=== PATIENT | male | born 1950 | race Caucasian/White ===

== ENCOUNTER 2024-05-26 17:16 | Observation (INO) | payer MEDICARE ==
--- NOTE | 2024-05-26 17:23 | ED ---
General Adult HPI - General Stated complaint: chest pain Time Seen by Provider: 05/26/24 17:21 - History of Present Illness Initial comments: Dictation was produced using [employer] dictation software. please excuse any grammatical, word or spelling errors. Chief Complaint: 74-year-old male with multiple comorbidities presents to the ER for chest pain. History of Present Illness: Patient 74-year-old male he is from out of town. He currently resides in [place] however he drove here 2 weeks ago to visit family. Patient states that yesterday he began having some chest pain that radiate down his left upper extremity. Patient has history of ND and coronary artery disease. Patient denies any associated shortness of breath. EMS was called patient brought to the ER. Patient denies any symptoms at the bedside. EMS states that he had stable vitals and stable EKG en route to the ER. The ROS documented in this emergency department record has been reviewed and confirmed by me. Those systems with pertinent positive or negative responses have been documented in the HPI. All other systems are other negative and/or noncontributory. - Related Data Allergies Allergy/AdvReac Type Severity Reaction Status Date / Time No Known Allergies Allergy Verified 05/26/24 17:37 Review of Systems ROS Statement: Those systems with pertinent positive or pertinent negative responses have been documented in the HPI. ROS Other: All systems not noted in ROS Statement are negative. General Exam - General Exam Comments Initial Comments: PHYSICAL EXAM: General Impression: Alert and oriented x3, not in acute distress HEENT: Normocephalic atraumatic, extra-ocular movements intact, pupils equal and reactive to light bilaterally, mucous membranes moist. Cardiovascular: Heart regular rate and rhythm Chest: Able to complete full sentences, no retractions, no tachypnea Abdomen: abdomen soft, non-tender, non-distended, no organomegaly Musculoskeletal: Pulses present and equal in all extremities, no peripheral edema Motor: no focal deficits noted Neurological: CN II-XII grossly intact, no focal motor or sensory deficits noted Skin: Intact with no visualized rashes Psych: Normal affect and mood Course Vital Signs 05/26/24 17:19 Temperature 97.7 F Pulse Rate 62 Respiratory 22 Rate Blood Pressure 135/98 O2 Sat by Pulse 100 Oximetry EKG Findings - EKG Comments: EKG Findings:: My EKG interpretation: Ventricular rate 67, sinus rhythm,. 189, cures 144, QTc 424, right bundle branch block. No PA prolongation, no QTC pr olongation, no ST or T-wave changes noted. Overall, this EKG is unremarkable Medical Decision Making - Medical Decision Making Was pt. sent in by a medical professional or institution ([facility], [employer], urgent care, hospital, or detention...) When possible be specific @ -No Did you speak to anyone other than the patient for history (EMS, parent, family, police, friend...)? What history was obtained from this source @ -Some history discussed with EMS as described above Did you review nursing and triage notes (agree or disagree)? Why? @ -I reviewed and agree with nursing and triage notes Were old charts reviewed (outside hosp., previous admission, EMS record, old EKG, old radiological studies, urgent care reports/EKG's, detention records)? Report findings @ -No old charts were reviewed Differential Diagnosis (chest pain, altered mental status, abdominal pain women, abdominal pain men, vaginal bleeding, musculoskeletal, weakness, fever, dyspnea, syncope, headache, dizziness, GI bleed, back pain, seizure, CVA, palpatations, mental health)? @ -Differential Chest Pain: Stable Angina, Unstable Angina, STEMI, NSTEMI Aortic Dissection, Pneumothorax, Musculoskeletal, Esophageal Spasm GERD, Cholecystitis, Pancreatitis, Zoster, t his is not meant to be an all-inclusive list. EKG interpreted by me (3pts min.). @ -See above X-rays interpreted by me (1pt min.). @ -Chest x-ray shows no acute processes CT interpreted by me (1pt min.). @ -None done U/S interpreted by me (1pt. min.). @ -None done What testing was considered but not performed or refused? (CT, X-rays, U/S, labs)? Why? @ -None What meds were considered but not given or refused? Why? @ -None Was smoking cessation discussed for >3mins.? @ -No Were there social determinants of health that impacted care today? How? (Homelessness, low income, unemployed, alcoholism, drug addiction, transportation, low edu. Level, literacy, decrease access to med. care, senior care, rehab)? @ -No Was there de-escalation of care discussed even if they declined (Discuss DNR or withdrawal of care, Hospice)? DNR status @ -No What co-morbidities impacted this encounter? (DM, HTN, Smoking, COPD, CAD, Cancer, CVA, ARF, Chemo, Hep., AIDS, mental health diagnosis, sleep apnea, morb id obesity)? @ -ND, coronary artery disease, CABG Was patient admitted / discharged? Hospital course, mention meds given and route, prescriptions, significant lab abnormalities, going to OR and other pertinent info. @ -73-year-old male with multiple comorbidities presents to the emergency department with atypical chest pain typical features. Vital signs stable stable. EKG shows no signs of ischemia infarction. Patient's pain-free at the bedside. Patient has multiple risk factors. Laboratory evaluation obtained. Labs are within acceptable limits. Trope negative. Due to patient's high risk features he will be admitted observation consultation cardiology. Patient given aspirin. Will be admitted to Dr. Lazaro Did you discuss the management of the patient with other professionals (professionals i.e. , PA, [employer]ER, lab, RT, psych nurse, home health care social worker, industrial recruiter, teacher, disciplinary hearing officer, watch case polisher)? Give summary @ -Case discussed with hospitalist for admission Was critical care preformed (if so, how long)? @ -No Undiagnosed new problem with uncertain prognosis? @ -No Drug Therapy requiring intensive monitoring for toxicity (Heparin, Nitro, Insulin, Cardizem)? @ -No Were any procedures done? @ -No Diagnosis/symptom? Acute, or Chronic, or Acute on Chronic? Uncomplicated (without systemic symptoms) or Complicated (systemic symptoms)? @ -Chest pain Side effects of treatment? @ -No Exacerbation, Progression, or Severe Exacerbation? @ -No Poses a threat to life or bodily function? How? (Chest pain, USA, ND, pneumonia, PE, COPD, DKA, ARF, appy, cholecystitis, CVA, Diverticulitis, Homicidal, Suicidal, threat to staff... and all critical care pts) @ -yes - Lab Data Result diagrams: 05/26/24 17:39 05/26/24 17:39 Lab Results 05/26/24 05/26/24 05/26/24 Range/Units 17:39 17:39 17:39 WBC 5.3 (3.8-10.6) k/uL RBC 5.26 (4.30-5.90) m/uL Hgb 16.1 (13.0-17.5) gm/dL Hct 47.0 (39.0-53.0) % MCV 89.3 (80.0-100.0) fL MCH 30.5 (25.0-35.0) pg MCHC 34.2 (31.0-37.0) g/dL RDW 13.4 (11.5-15.5) % Plt Count 201 (150-450) k/uL MPV 7.1 Neutrophils % 57 % Lymphocytes % 28 % Monocytes % 6 % Eosinophils % 6 % Basophils % 2 % Neutrophils # 3.0 (1.3-7.7) k/uL Lymphocytes # 1.5 (1.0-4.8) k/uL Monocytes # 0.3 (0-1.0) k/uL Eosinophils # 0.3 (0-0.7) k/uL Basophils # 0.1 (0-0.2) k/uL PT 11.3 (10.0-12.5) sec INR 1.0 (<1.2) APTT 24.8 (22.0-30.0) sec Sodium 137 (137-145) mmol/L Potassium 4.2 (3.5-5.1) mmol/L Chloride 105 (98-107) mmol/L Carbon Dioxide 27 (22-30) mmol/L Anion Gap 5 mmol/L BUN 19 (9-20) mg/dL Creatinine 0.90 (0.66-1.25) mg/dL Est GFR (CKD-EPI)AfAm >90 (>60 ml/min/1.73 sqM) Est GFR (CKD-EPI)NonAf 85 (>60 ml/min/1.73 sqM) Glucose 105 H (74-99) mg/dL Calcium 8.8 (8.4-10.2) mg/dL Magnesium 2.0 (1.6-2.3) mg/dL Total Bilirubin 0.6 (0.2-1.3) mg/dL AST 25 (17-59) U/L ALT 19 (4-49) U/L Alkaline Phosphatase 103 (38-126) U/L Troponin I (0.000-0.034) ng/mL Total Protein 7.4 (6.3-8.2) g/dL Albumin 4.0 (3.5-5.0) g/dL 05/26/24 Range/Units 17:39 WBC (3.8-10.6) k/uL RBC (4.30-5.90) m/uL Hgb (13.0-17.5) gm/dL Hct (39.0-53.0) % MCV (80.0-100.0) fL MCH (25.0-35.0) pg MCHC (31.0-37.0) g/dL RDW (11.5-15.5) % Plt Count (150-450) k/uL MPV Neutrophils % % Lymphocytes % % Monocytes % % Eosinophils % % Basophils % % Neutrophils # (1.3-7.7) k/uL Lymphocytes # (1.0-4.8) k/uL Monocytes # (0-1.0) k/uL Eosinophils # (0-0.7) k/uL Basophils # (0-0.2) k/uL PT (10.0-12.5) sec INR (<1.2) APTT (22.0-30.0) sec Sodium (137-145) mmol/L Potassium (3.5-5.1) mmol/L Chloride (98-107) mmol/L Carbon Dioxide (22-30) mmol/L Anion Gap mmol/L BUN (9-20) mg/dL Creatinine (0.66-1.25) mg/dL Est GFR (CKD-EPI)AfAm (>60 ml/min/1.73 sqM) Est GFR (CKD-EPI)NonAf (>60 ml/min/1.73 sqM) Glucose (74-99) mg/dL Calcium (8.4-10.2) mg/dL Magnesium (1.6-2.3) mg/dL Total Bilirubin (0.2-1.3) mg/dL AST (17-59) U/L ALT (4-49) U/L Alkaline Phosphatase (38-126) U/L Troponin I <0.012 (0.000-0.034) ng/mL Total Protein (6.3-8.2) g/dL Albumin (3.5-5.0) g/dL Disposition Clinical Impression: Chest pain Disposition: ADMITTED IP TO THIS HOSP Condition: Fair Referrals: None,Stated [Primary Care Provider] - 1-2 days Decision Time: 18:41
[2024-05-26 17:49] LABS: Basophils # (A) 0.1 k/uL (0-0.2); Basophils % (A) 2 %; Eosinophils # (A) 0.3 k/uL (0-0.7); Eosinophils % (A) 6 %; HGB 16.1 gm/dL (13.0-17.5); Lymphocytes # (A) 1.5 k/uL (1.0-4.8); Lymphocytes % (A) 28 %; MCH 30.5 pg (25.0-35.0); MCHC 34.2 g/dL (31.0-37.0); MCV 89.3 fL (80.0-100.0); Mean Platelet Volume 7.1; Monocytes # (A) 0.3 k/uL (0-1.0); Monocytes % (A) 6 %; Neutrophils % (A) 57 %; Platelet Count 201 k/uL (150-450); RBC 5.26 m/uL (4.30-5.90); RDW 13.4 % (11.5-15.5); WBC 5.3 k/uL (3.8-10.6)
[2024-05-26 17:57] LABS: Partial Thromboplastin Time 24.8 sec (22.0-30.0); Prothrombin Time 11.3 sec (10.0-12.5)
[2024-05-26 17:59] LABS: ALT 19 U/L (4-49); AST 25 U/L (17-59); African American GFR (CKD) >90 (>60 ml/min/1.73 sqM); Alkaline Phosphatase 103 U/L (38-126); Anion Gap 5 mmol/L; Blood Urea Nitrogen 19 mg/dL (9-20); Calcium 8.8 mg/dL (8.4-10.2); Carbon Dioxide 27 mmol/L (22-30); Chloride 105 mmol/L (98-107); Glucose 105 mg/dL (74-99); Non-African American GFR(CKD) 85 (>60 ml/min/1.73 sqM); Potassium 4.2 mmol/L (3.5-5.1); Sodium 137 mmol/L (137-145); Total Bilirubin 0.6 mg/dL (0.2-1.3); Total Protein 7.4 g/dL (6.3-8.2)
--- NOTE | 2024-05-26 18:02 | XR ---
EXAMINATION TYPE: XR chest 2V DATE OF EXAM: 05/26/2024 COMPARISON: None INDICATION: Chest pain TECHNIQUE: Frontal and lateral views of the chest are obtained. FINDINGS: The heart size is normal. The pulmonary vasculature is normal. There is blunting of left costophrenic angle. Atelectasis and/or small effusion may be present.. IMPRESSION: 1. Left costophrenic angle blunting. Correlate for atelectasis or effusion.
[2024-05-26] MEDS ORDERED: NITROGLYCERIN SL TABS 0.4 MG TAB SUBLINGUAL PRN (18:37)
[2024-05-26] MEDS: ASPIRIN 81 MG PO STA (18:52)
[2024-05-26] MEDS ORDERED: ALBUTEROL HFA INHALER INHALATION PRN (20:11)
[2024-05-26] MEDS: FENOFIBRATE 160 MG TAB PO SCH (20:30)
[2024-05-26] MEDS: ATORVASTATIN 20 MG TAB PO SCH (20:30)
[2024-05-26] MEDS: carvediloL 12.5 MG TAB PO SCH (20:31)
[2024-05-26] MEDS: NICOTINE 21MG/24HR PATCH TRANSDERM SCH (20:31)
[2024-05-26] MEDS: PANTOPRAZOLE 40 MG/10 ML VIAL IVP SCH (20:32)
[2024-05-26 22:15] VITALS: RESP 16
--- NOTE | 2024-05-26 22:24 | CT ---
EXAMINATION TYPE: CT angio chest CT DLP: 553.8 mGycm, Automated exposure control for dose reduction was used. DATE OF EXAM: 05/26/2024 9:58 PM COMPARISON: None. CLINICAL INDICATION:Male, 73 years old with history of D-dimer; CHEST PAIN TECHNIQUE/CONTRAST: CTA scan of the thorax is performed with IV Contrast, patient injected with 100 mL of Isovue 370, MIP images are created and reviewed these are created on a separate workstation.. FINDINGS: Pulmonary Artery: There is no evidence for a filling defect within the pulmonary vasculature to sugge st acute pulmonary embolism. The pulmonary artery is of normal size. Lungs/Pleura: Bilateral centrilobular and scattered paraseptal emphysematous changes. Scattered areas of atelectasis/scarring the bilateral lower lobes. There is a subpleural solid right lower lobe 7 mm nodule. There a few scattered sub-5 mm nodules in the right lung. There is a 5 mm pulmonary nodule i n the left upper lobe. No focal consolidations, pleural effusion or pneumothorax. Airway: Large airways are patent. Heart: Heart is within normal limits for size. Coronary artery atherosclerosis. Vasculature: Ascending aortic ectasia measuring 4.7 cm dilatation. There are calcified and noncalcifi ed atherosclerotic changes of the descending aorta. Mediastinum: No gross evidence of adenopathy. Musculoskeletal: No acute osseous abnormalities. Degenerative changes of the visualized spine. Sterno theodora wires are present. Soft Tissues/lymph nodes: Unremarkable. Lower neck: No significant findings. Upper Abdomen: Cholecystectomy clips. IMPRESSION: 1. No evidence of pulmonary embolism or acute intrathoracic process. 2. Emphysema. 3. Ascending aortic ectasia measuring up to 4.7 cm in dilatation. 4. Multiple subcentimeter pulmonary nodules are seen with the largest in the left lower lobe measurin g [address] chest follow-up in 6 months to assess any interval changes.
[2024-05-27 08:36] LABS: Chol/HDL Ratio 5.81 Ratio; LDL Cholesterol,Calculated 83.5 mg/dL (0.0-131.0)
[2024-05-27] MEDS: IPRATROPIUM-ALBUTEROL 3 ML NEB INHALATION SCH (08:36)
[2024-05-27] MEDS ORDERED: ASPIRIN 325 MG TAB PO SCH (09:00)
[2024-05-27] MEDS: ISOSORBIDE MONONITRATE ER 30 MG TAB.ER.24H PO SCH (09:32)
[2024-05-27] MEDS: FUROSEMIDE 20 MG TAB PO SCH (09:32)
[2024-05-27] MEDS: POTASSIUM CHLORIDE ER 10 MEQ TAB.ER.PRT PO SCH (09:32)
[2024-05-27] MEDS: ASPIRIN 81 MG PO SCH (09:32)
[2024-05-27] MEDS: CLOPIDOGREL 75 MG TAB PO SCH (09:32)
--- NOTE | 2024-05-27 10:59 | P.CRDCN ---
History of Present Illness History of present illness: HISTORY OF PRESENT ILLNESS: This is a 73-year-old male with a past medical history significant for coronary artery disease with previous CABG, hypertension, hyperlipidemia, nicotine dependence. Patient resides in [place] and follows with a media professional there. he states he is here visiting and until June. We have been asked to see the patient in consultation for chest pain. Patient examined at the bedside. patient presented to Hospital chief complaint of chest discomfort. Patient states he has been getting shooting pains into his left arm and pain in the middle of his chest. He states that he will take Motrin and usually has some relief of the pain. He denies any shortness of breath. Denies any nausea or vomiting. The patient does report a history of a CABG for 5 years ago and thinks he had 2-3 vessels bypassed but is now 100% sure. He does not believe he has had any recent stress testing. He is a current cigarette smoker and states he has no plans on quitting smoking. He states "I will stop smoking when I am in the ground" * EKG reveals sinus mechanism with right bundle branch block. PACs. No signs of acute ischemia. * Chest xray left costophrenic angle blunting. Correlate for atelectasis or effusion. * chest CTA: Negative for pulmonary embolism, emphysema, ascending aortic ectasia measuring up to 4.7 cm in dilatation, multiple subsegmental pulmonary nodules with the largest in the left lower lobe measuring 7 mm * Laboratory data: WC 5.3. Hemoglobin 16.1. Platelet count 201.sodium 137. Potassium 4.2. BUN 19. Creatinine 0.90. Troponin negative 3. * Current home cardiac medications include Lasix 20 mg daily, Lopid 600 mg twice a day, carvedilol 25 mg twice a day, Plavix 75 mg daily, atorvastatin 20 mg at night * No previous echocardiogram, stress test, or cardiac catheterization available in EMR for review REVIEW OF SYSTEMS: At the time of my exam: CONSTITUTIONAL: Denies fever or chills. HEENT: Denies blurred vision, vision changes, or eye pain. Denies hemoptysis CARDIOVASCULAR: Denies chest pain. Denies orthopnea. Denies PND. Denies palpitations RESPIRATORY: Denies shortness of breath. GASTROINTESTINAL: Denies abdominal pain. Denies nausea or vomiting. HEMATOLOGIC: Denies bleeding disorders. GENITOURINARY: Denies any blood in urine. SKIN: Denies pruitis. Denies rash. PHYSICAL EXAM: VITAL SIGNS: Reviewed. GENERAL: Well-developed in no acute distress. HEENT: Head is normocephalic. Pupils are equal, round. Sclerae anicteric. Mucous membranes of the mouth are moist. Neck supple. No JVD or thyromegaly LUNGS: Respirations even and unlabored. Lungs with decreased air exchange bilaterally. HEART: Regular rate and rhythm. S1 and S2 heard.systolic murmur noted at the apex. ABDOMEN: Soft. Nondistended. Nontender. EXTREMITIES: Normal range of motion. No clubbing or cyanosis. Peripheral pulses intact.decreased right lower extremity pulses. No lower extremity edema NEUROLOGIC: Awake and alert. Oriented x 3. ASSESSMENT: Chest pain Coronary artery disease with previous CABG, details unknown Ascending aortic ectasia measuring up to 4.7 cm in dilatation Multiple subsegmental pulmonary nodules with the largest in the left lower lobe measuring 7 mm Hypertension Hyperlipidemia Nicotine dependence with no intentions of quitting PLAN: An acute coronary event has been ruled out Obtain 2-D echo to assess cardiac structure and function Resume home cardiac medications Smoking cessation recommended Pending echocardiogram results, the patient may be discharged home this afternoon The patient will be scheduled for outpatient Lexiscan stress test next week Further recommendations pending patient's course Nurse practitioner note has been reviewed by physician. Signing provider agrees with the documented findings, assessment, and plan of care. Past Medical History Past Medical History: Asthma, COPD, Myocardial Infarction ([place]) Last Myocardial Infarction Date:: N/A History of Any Multi-Drug Resistant Organisms: None Reported Past Surgical History: Cholecystectomy, Heart Catheterization With Stent, Hernia Repair, Orthopedic Surgery, Pacemaker Past Anesthesia/Blood Transfusion Reactions: No Reported Reaction Date of Last Stent Placement:: N/A Type of Cardiac Device: Unknown Device Placement Date:: N/A Past Psychological History: No Psychological Hx Reported Smoking Status: Current every day smoker Past Alcohol Use History: None Reported Past Drug Use History: None Reported Medications and Allergies Home Medications Medication Instructions Recorded Confirmed Type Albuterol Inhaler [Ventolin Hfa 2 puff INHALATION RT-Q4H PRN 05/26/24 05/26/24 History Inhaler] Atorvastatin [Lipitor] 20 mg PO HS 05/26/24 05/26/24 History Clopidogrel [Plavix] 75 mg PO DAILY 05/26/24 05/26/24 History Furosemide [Lasix] 20 mg PO DAILY 05/26/24 05/26/24 History Potassium Chloride 10 meq PO DAILY 05/26/24 05/26/24 History carvediloL [Coreg] 25 mg PO BID 05/26/24 05/26/24 History gemfibroziL [Lopid] 600 mg PO BID 05/26/24 05/26/24 History Allergies Allergy/AdvReac Type Severity Reaction Status Date / Time No Known Allergies Allergy Verified 05/26/24 18:52 Physical Exam Vitals: Vital Signs Temp Pulse Pulse Resp BP BP Pulse Ox 05/27/24 07:00 97.4 F L 61 16 118/71 96 05/27/24 02:28 97.5 F L 51 L 16 113/65 97 05/26/24 23:21 97.6 F 82 16 146/78 96 05/26/24 23:04 97.8 F 64 16 100/65 94 L 05/26/24 22:13 63 16 132/86 96 05/26/24 21:01 61 18 136/90 95 05/26/24 19:55 59 L 22 144/97 97 05/26/24 18:53 98.2 F 66 20 154/101 98 05/26/24 17:19 97.7 F 62 22 135/98 100 Intake and Output 05/26/24 05/27/24 05/27/24 22:59 06:59 14:59 Other: # Voids 1 Weight 113.398 kg Results 05/26/24 17:39 05/26/24 17:39 Cardiac Enzymes 05/26/24 05/26/24 05/26/24 Range/Units 17:39 17:39 19:57 AST 25 (17-59) U/L Troponin I <0.012 <0.012 (0.000-0.034) ng/mL 05/26/24 Range/Units 22:44 AST (17-59) U/L Troponin I <0.012 (0.000-0.034) ng/mL Coagulation 05/26/24 Range/Units 17:39 PT 11.3 (10.0-12.5) sec APTT 24.8 (22.0-30.0) sec CBC 05/26/24 Range/Units 17:39 WBC 5.3 (3.8-10.6) k/uL RBC 5.26 (4.30-5.90) m/uL Hgb 16.1 (13.0-17.5) gm/dL Hct 47.0 (39.0-53.0) % Plt Count 201 (150-450) k/uL Comprehensive Metabolic Panel 05/26/24 Range/Units 17:39 Sodium 137 (137-145) mmol/L Potassium 4.2 (3.5-5.1) mmol/L Chloride 105 (98-107) mmol/L Carbon Dioxide 27 (22-30) mmol/L BUN 19 (9-20) mg/dL Creatinine 0.90 (0.66-1.25) mg/dL Glucose 105 H (74-99) mg/dL Calcium 8.8 (8.4-10.2) mg/dL AST 25 (17-59) U/L ALT 19 (4-49) U/L Alkaline Phosphatase 103 (38-126) U/L Total Protein 7.4 (6.3-8.2) g/dL Albumin 4.0 (3.5-5.0) g/dL Current Medications Generic Name Dose Route Start Last Admin Trade Name Freq PRN Reason Stop Dose Admin Albuterol Sulfate 2 puff 05/26/24 20:11 Albuterol Hfa Inhaler INHALATION RT-Q4H PRN Shortness Of Breath Albuterol/Ipratropium 3 ml 05/27/24 08:00 Ipratropium-Albuterol 3 Ml Neb INHALATION RT-QID CAIT Aspirin 325 mg 05/27/24 09:00 Aspirin 325 Mg Tab PO DAILY [facility] Atorvastatin Calcium 20 mg 05/26/24 21:00 05/26/24 20:30 Atorvastatin 20 Mg Tab PO 20 mg HS CAIT Administration Carvedilol 25 mg 05/26/24 21:00 05/26/24 20:31 Carvedilol 12.5 Mg Tab PO 25 mg BID CAIT Administration Clopidogrel Bisulfate 75 mg 05/27/24 09:00 Clopidogrel 75 Mg Tab PO DAILY [facility] Fenofibrate 160 mg 05/26/24 21:00 05/26/24 20:30 Fenofibrate 160 Mg Tab PO 160 mg BID CAIT Administration Furosemide 20 mg 05/27/24 09:00 Furosemide 20 Mg Tab PO DAILY [facility] Nicotine 1 patch 05/26/24 20:15 05/26/24 20:31 Nicotine 21mg/24hr Patch TRANSDERM Not Given DAILY CAIT Nitroglycerin 0.4 mg 05/26/24 18:37 Nitroglycerin Sl Tabs 0.4 Mg Tab SUBLINGUAL Q5M PRN Chest Pain Pantoprazole Sodium 40 mg 05/26/24 20:15 05/26/24 20:32 Pantoprazole 40 Mg/10 Ml Vial IVP 40 mg DAILY CAIT Administration Potassium Chloride 10 meq 05/27/24 09:00 Potassium Chloride Er 10 Meq Tab.Er.Prt PO DAILY CAIT Intake and Output 05/26/24 05/27/24 05/27/24 22:59 06:59 14:59 Other: # Voids 1 Weight 113.398 kg 05/26/24 17:39 05/26/24 17:39
--- NOTE | 2024-05-27 13:43 | CA ---
Transthoracic Echo Report Name: Mustapha Baker Age: 73 Gender: M : 1950 Exam Date: 05/27/2024 11:16 Exam Location: [facility] Ht (in): 76 Wt (lb): 250 Ordering Physician: Alonso Lazaro MD Attending/Referring Phys: Photographic Enlarger Operator Radha Shah RDCS Procedure CPT: Indications: CAD Cardiac Hx: Technical Quality: Technically difficult study Contrast 1: Definity Total Dose (mL): 2 Contrast 2: Total Dose (mL): MEASUREMENTS (Male / Female) Normal Values 2D ECHO LV Diastolic Diameter PLAX 4.5 cm 4.2 - 5.9 / 3.9 - 5.3 cm LV Systolic Diameter PLAX 3.2 cm IVS Diastolic Thickness 1.6 cm 0.6 - 1.0 / 0.6 - 0.9 cm LVPW Diastolic Thickness 1.3 cm 0.6 - 1.0 / 0.6 - 0.9 cm LV Relative Wall Thickness 0.7 LA Volume 37.5 cm??? 18 - 58 / 22 - 52 cm??? LA Volume Index 15.1 cm???/m??? 16 - 28 cm???/m??? M-MODE Aortic Root Diameter MM 4.8 cm DOPPLER AV Peak Velocity 95.3 cm/s AV Peak Gradient 3.6 mmHg AV Mean Velocity 58.7 cm/s AV Mean Gradient 1.6 mmHg AV Velocity Time Integral 17.0 cm LVOT Peak Velocity 89.7 cm/s LVOT Peak Gradient 3.2 mmHg LVOT Velocity Time Integral 18.5 cm MV Area PHT 1.5 cm??? Mitral E Point Velocity 54.5 cm/s Mitral A Point Velocity 77.0 cm/s Mitral E to A Ratio 0.7 MV Deceleration Time 496.1 ms MV E' Velocity 5.2 cm/s Mitral E to MV E' Ratio 10.4 FINDINGS Left Ventricle Moderately increased left ventricular wall thickness. No obvious regional wall motion abnormalities. Abnormal (paradoxical) septal motion consistent with postoperative state. Left ventricular ejection fraction is estimated at 50-55 %. Grade 1 diastolic dysfunction. Right Ventricle Right ventricle not well visualized. Right Atrium Right atrium not well visualized. Left Atrium Normal left atrial size. Mitral Valve Structurally normal mitral valve. No mitral stenosis. Mitral annular calcification. Mild mitral regurgitation. Aortic Valve No aortic valve stenosis or regurgitation. Tricuspid Valve Structurally normal tricuspid valve. Mild tricuspid regurgitation. Pulmonic Valve Pulmonic valve not well visualized. Pericardium No pericardial effusion. Echo free space anterior to the right ventricle likely represents a fat pad. Aorta Aortic dilatation. Moderate aortic dilatation at the level of the sinuses of valsalva (root) 4.4 cm. CONCLUSIONS Normal LV size and preserved systolic function. Mitral annular calcification mild mitral regurgitation. Aortic root is dilated. There is no clearcut pericardial effusion. Right-sided pressures are not well quantified. Previewed by: Dr. Alisia Álvarez MD (Electronically Signed) Final Date: 27 May 2024 13:42
[2024-05-27 14:19] VITALS: BP 103/56; PULSE 63; TEMP 98.4
--- NOTE | 2024-05-27 17:26 | P.HPIM ---
History of Present Illness H&P Date: 05/27/24 Chief Complaint: chest pain 74-year-old male presented emergency department with chest pain, [place] family came into weeks ago, yesterday started having chest pain, radiating to left upper extremity, patient has prior history of MO and coronary artery disease, no shortness of breath, EMS were called and patient brought to emergency department for further evaluation of note that on arrival his vital stable and EKG no acute changes and verified,he was noted to have a d-dimer 0.93 rest of the labs fairly within normal limit except elevated triglyceride of 340reviewed his chest x-ray some blunting suggestive of effusion or atelectasis on the left lung basecomputed tomography scan of his chest with IV contrast no PE seen, suggestive emphysema, ascending aortic ectasia 4.5 cm, multiple subcentimeter pulmonary nodules were seen with the largest of 7 mm on left lower lobe, patient evaluated by cardiovascular services echocardiogram done which revealed normal LV function and preserved systolic function, patient has been cleared by cardiovascular service to be discharged with follow-up as outpatient for stress test Review of Systems All systems: negative Past Medical History Past Medical History: Asthma, COPD, Myocardial Infarction (MO) Last Myocardial Infarction Date:: N/A History of Any Multi-Drug Resistant Organisms: None Reported Past Surgical History: Cholecystectomy, Heart Catheterization With Stent, Hernia Repair, Orthopedic Surgery, Pacemaker Past Anesthesia/Blood Transfusion Reactions: No Reported Reaction Date of Last Stent Placement:: N/A Type of Cardiac Device: Unknown Device Placement Date:: N/A Past Psychological History: No Psychological Hx Reported Smoking Status: Current every day smoker Past Alcohol Use History: None Reported Past Drug Use History: None Reported Medications and Allergies Home Medications Medication Instructions Recorded Confirmed Type Albuterol Inhaler [Ventolin Hfa 2 puff INHALATION RT-Q4H PRN 05/26/24 05/26/24 History Inhaler] Atorvastatin [Lipitor] 20 mg PO HS 05/26/24 05/26/24 History Clopidogrel [Plavix] 75 mg PO DAILY 05/26/24 05/26/24 History Furosemide [Lasix] 20 mg PO DAILY 05/26/24 05/26/24 History Potassium Chloride 10 meq PO DAILY 05/26/24 05/26/24 History carvediloL [Coreg] 25 mg PO BID 05/26/24 05/26/24 History gemfibroziL [Lopid] 600 mg PO BID 05/26/24 05/26/24 History Allergies Allergy/AdvReac Type Severity Reaction Status Date / Time No Known Allergies Allergy Verified 05/26/24 18:52 Physical Exam Vitals: Vital Signs Temp Pulse Pulse Resp BP BP Pulse Ox 05/27/24 14:18 98.4 F 63 16 103/56 98 05/27/24 07:00 97.4 F L 61 16 118/71 96 05/27/24 02:28 97.5 F L 51 L 16 113/65 97 05/26/24 23:21 97.6 F 82 16 146/78 96 05/26/24 23:04 97.8 F 64 16 100/65 94 L 05/26/24 22:13 63 16 132/86 96 05/26/24 21:01 61 18 136/90 95 05/26/24 19:55 59 L 22 144/97 97 05/26/24 18:53 98.2 F 66 20 154/101 98 05/26/24 17:19 97.7 F 62 22 135/98 100 Intake and Output 05/27/24 05/27/24 05/27/24 06:59 14:59 22:59 Intake Total 118 Balance 118 Intake: Oral 118 Other: Voiding Method Toilet # Voids 1 2 - Constitutional General appearance: average body habitus, cooperative, disheveled - EENT Eyes: PERRLA ENT: normal oropharynx Ears: bilateral: normal - Neck Carotids: bilateral: upstroke normal Thyroid: bilateral: normal size - Respiratory Respiratory: bilateral: CTA - Cardiovascular Rhythm: regular Heart sounds: normal: S1, S2 - Gastrointestinal General gastrointestinal: normal bowel sounds - Integumentary Integumentary: normal - Neurologic Neurologic: CNII-XII intact - Musculoskeletal Musculoskeletal: gait normal, generalized weakness, strength equal bilaterally - Psychiatric Psychiatric: A&O x's 3, appropriate affect, intact judgment & insight Results CBC & Chem 7: 05/26/24 17:39 05/26/24 17:39 Labs: Abnormal Lab Results - Last 24 Hours (Table) 05/26/24 05/26/24 05/26/24 Range/Units 17:39 17:39 19:39 D-Dimer 0.93 H (<0.60) mg/L FEU Glucose 105 H (74-99) mg/dL Triglycerides 340.00 H (0.00-149.00) mg/dL VLDL Cholesterol, Calc 68.00 H (5.00-40.00) mg/dL HDL Cholesterol 31.50 L (40.00-60.00) mg/dL Chest x-ray: report reviewed, image reviewed CT scan - chest: pending, report reviewed, image reviewed Thrombosis Risk Factor Assmnt - Choose All That Apply Any of the Below Risk Factors Present?: Yes Each Factor Represents 1 point: Obesity (BMI >25) Other Risk Factors: Yes Each Risk Factor Represents 2 Points: Age 61-74 years Other congenital or acquired thrombophilia - If yes, enter type in comment: No Thrombosis Risk Factor Assessment Total Risk Factor Score: 3 Thrombosis Risk Factor Assessment Level: Moderate Risk Assessment and Plan Assessment: atypical chest pain Elevated d-dimer Left-sided subsegmental atelectasis Bilateral subcentimeter pulmonary nodules with the largest left lower lobe nodule 7 mm in size History of smoking and nicotine use Likely baseline COPD Plan: cardiovascular evaluation as above stressed as as outpatient Patient has been educated and consult about smoking cessation Patient has been recommended for follow-up CT scan in 6 months to assess left lower lobe nodules Deep breathing exercise incentive spirometry Patient will benefit from statins for dyslipidemia, patient would like [place] Time with Patient: Greater than 30
--- NOTE | 2024-05-27 17:29 | P.DS ---
Providers Date of admission: 05/26/24 18:38 Expected date of discharge: 05/27/24 Attending physician: Alonso Lazaro Consults: 05/26/24 18:37 Consult Physician Urgent Consulting Provider: Bryan Song Consult Reason/Comments: chest pain Do you want consulting provider notified?: Yes Primary care physician: Physician Nonstaff Hospital Course: 74-year-old male presented emergency department with chest pain, [place] was [place] family came into weeks ago, yesterday started having chest pain, radiating to left upper extremity, patient has prior history of [place] and coronary artery disease, no shortness of breath, EMS were called and patient brought to emergency department for further evaluation of note that on arrival his vital stable and EKG no acute changes and verified,he was noted to have a d-dimer 0.93 rest of the labs fairly within normal limit except elevated triglyceride of 340reviewed his chest x-ray some blunting suggestive of effusion or atelectasis on the left lung basecomputed tomography scan of his chest with IV contrast no PE seen, suggestive emphysema, ascending aortic ectasia 4.5 cm, multiple subcentimeter pulmonary nodules were seen with the largest of 7 mm on left lower lobe, patient evaluated by cardiovascular services echocardiogram done which revealed normal LV function and preserved systolic function, patient has been cleared by cardiovascular service to be discharged with follow-up as outpatient for stress test Assessment: atypical chest pain Elevated d-dimer Left-sided subsegmental atelectasis Bilateral subcentimeter pulmonary nodules with the largest left lower lobe nodule 7 mm in size History of smoking and nicotine use Likely baseline COPD Patient Condition at Discharge: Fair Plan - Discharge Summary Discharge Rx Participant: No New Discharge Prescriptions: No Action Potassium Chloride 10 meq PO DAILY Albuterol Inhaler [Ventolin Hfa Inhaler] 2 puff INHALATION RT-Q4H PRN PRN Reason: Shortness Of Breath carvediloL [Coreg] 25 mg PO BID Clopidogrel [Plavix] 75 mg PO DAILY Furosemide [Lasix] 20 mg PO DAILY gemfibroziL [Lopid] 600 mg PO BID Atorvastatin [Lipitor] 20 mg PO HS Discharge Medication List Albuterol Inhaler [Ventolin Hfa Inhaler] 2 puff INHALATION RT-Q4H PRN 05/26/24 [History] Atorvastatin [Lipitor] 20 mg PO HS 05/26/24 [History] Clopidogrel [Plavix] 75 mg PO DAILY 05/26/24 [History] Furosemide [Lasix] 20 mg PO DAILY 05/26/24 [History] Potassium Chloride 10 meq PO DAILY 05/26/24 [History] carvediloL [Coreg] 25 mg PO BID 05/26/24 [History] gemfibroziL [Lopid] 600 mg PO BID 05/26/24 [History] Follow up Appointment(s)/Referral(s): None,Stated [REFERRING] - 1-2 days Activity/Diet/Wound Care/Special Instructions: Lexiscan Stress Test at [facility] Friday, May 31, 2024 at 08:15 am Please register at the main desk. DO NOT eat after midnight. DO take morning medications with a sip of water. NO caffeine for 12 hours before test.
== END 2024-05-27 17:53 | disposition home or self-care (01) ==
LOC: EC 17:16 → 6NMEDSUR 18:38
PROVIDERS: ADMIT Family Medicine; ATTEND Family Medicine
DX: R07.89 Other chest pain (principal); R79.89 Other specified abnormal findings of blood chemistry; J98.11 Atelectasis; R91.8 Other nonspecific abnormal finding of lung field; I25.2 Old myocardial infarction; I25.10 Atherosclerotic heart disease of native coronary artery without angina pectoris; I77.819 Aortic ectasia, unspecified site; Z90.49 Acquired absence of other specified parts of digestive tract; F17.210 Nicotine dependence, cigarettes, uncomplicated; Z79.02 Long term (current) use of antithrombotics/antiplatelets; I10 Essential (primary) hypertension; E78.5 Hyperlipidemia, unspecified; I45.10 Unspecified right bundle-branch block; Z95.1 Presence of aortocoronary bypass graft
CPT/HCPCS: 96376; 96374; 99285; 36415; 93005 ×2; 85379; 80061; 80053; 83735; 84484; 85025; 85610; 85730; 71046; 71275; G0378 ×2; C8929; Q9957; Q9967; J2470 ×2; 93306

== ENCOUNTER → 2024-05-31 | Outpatient (CLI) | payer MEDICARE ==
[~2024-05-31] MED LIST: REGADENOSON 0.4 MG/5 ML SYRINGE IV PRN
--- NOTE | 2024-05-31 12:11 | NM ---
EXAMINATION TYPE: NM stress lexiscan cardiolite DATE OF EXAM: 05/31/2024 COMPARISON: NONE CLINICAL INDICATION: Male, 73 years old with history of R07.9 Chest pain; TECHNIQUE: After the intravenous administration of 8.5 mCi Tc 99m Sestamibi - Cardiolite resting SPE CT images acquired 45 minutes post injection. The patient received 0.4mg Lexiscan, 24.6 mCi Tc 99m Sestamibi - Stress images obtained [address] injection FINDINGS: Review of stress and rest SPECT images demonstrates no distinct reversible perfusion abnormality. Fi xed defects noted of the septum and to a lesser extent the lateral wall Gated analysis shows normal w all motion with an estimated left ventricular ejection fraction of 51%. IMPRESSION: No scintigraphic evidence for reversible ischemia.
--- NOTE | 2024-05-31 17:24 | CA ---
Lexiscan Nuclear Stress Test Report Name: Mustapha Baker Exam Date: 05/31/2024 10:49 Exam Location: [facility] Stress Ht (in): 76 Wt (lb): 250 BSA: 2.44 Ordering Phys: Alisia Álvarez MD Referring Phys: REYNA Technologist: ARIC Age: 73 Gender: M : 1950 Procedure CPT: Indications: R07.9 CHEST PAIN ICD-10 Codes: Patient History: Chest pain, hypertension, history of ASCAD and bypass and family history of heart disease. Medications: Meds past 24 hrs: Pretest Chest Pain: STRESS TEST Lexiscan Protocol Exercise Duration (min:sec): 02:[address] Depressions (mm): Angina Score: [place] Score: Resting HR (bpm): 61 Peak HR (bpm): 76 Resting BP (mmHg): 143 / 101 Peak BP (mmHg): 136 / 89 MPHR: 148 Target HR: 126 % MPHR: 51 METS: 1.0 Total Dose: Peak Dose: Atropine: Double Product: 28019 BP Response: Stress Termination: Infusion complete Stress Symptoms: Dyspnea Stress Summary: ECG ANALYSIS Resting ECG: Normal sinus rhythm with right bundle branch block and PACs Stress ECG: Patient was given Lexiscan as a protocol did not have chest pain or diagnostic ST segment depression CONCLUSIONS Inconclusive EKG part of the stress test due to baseline EKG abnormalities Cardiolite portion of the stress test will be reported separately Dr. Lj Reyes MD (Electronically Signed) Final Date: 31 May 2024 17:23
== END | disposition home or self-care (01) ==
LOC: RADNMMAIN 09:27
PROVIDERS: ATTEND Internal Medicine Interventional Cardiology
DX: R94.31 Abnormal electrocardiogram [ECG] [EKG] (principal); R07.9 Chest pain, unspecified; I10 Essential (primary) hypertension
CPT/HCPCS: 93017; 78452; A9500; J2785